=== PATIENT | female | born 1985 | race Caucasian/White ===

== ENCOUNTER 2023-01-27 15:39 | Emergency (ER) | payer OTHER, SELFPAY ==
[2023-01-27 15:42] VITALS: BP 135/81; PULSE 70; RESP 18; TEMP 36.9; O2SAT 99; BMI 35.2
--- NOTE | 2023-01-27 15:48 | DI.RAD.S_ITS ---
PROCEDURE: XR FOOT RT MIN 3V INDICATIONS: fall/pain TECHNIQUE: 3 views of the foot were acquired. COMPARISON: None. FINDINGS: Bones: No acute appearing fractures or dislocations. Apparent remote fracture of the distal interphalangeal joint of the 5th toe can be seen. No suspicious bony lesions. A plantar calcaneal spur is seen. A remote appearing fracture of the distal 5th metatarsal can be seen, with chronic, well corticated deformity. Soft tissues: No tibiotalar joint effusion. Achilles tendon appears normal. IMPRESSION: Negative for acute fracture by plain film. Remote fractures of the 5th ray seen. Dictated by: Loi King M.D. on 01/27/2023 at 15:31 Approved by: Loi King M.D. on 01/27/2023 at 15:32
--- NOTE | 2023-01-27 16:50 | ED.LOWEXIN ---
HPI - Extremity Injury (Lower) <Shelly Pathak PA-C - Last Filed: 01/27/23 19:22> General Chief Complaint: Extremity Injury, Lower Stated Complaint: top of foot injury/fell Time Seen by Provider: 01/27/23 16:06 Source: patient Mode of arrival: Ambulatory History of Present Illness HPI Narrative: 37-year-old female here in ED for right foot injury that occurred today. States she was baby wearing her 3-month-old when she slipped in the mud and to protect him she tucked and rolled and twisted her right foot in the process. Gardners immediate pain and has been unable to bear weight on it since then. Recalls in 2019 she injured the same foot in the same spot but never got seen at that time and assumed it was a sprain but it took about 1 month to heal and it was pretty painful. Related Data Home Medications Medication Instructions Recorded Confirmed tramadol 50 mg tablet 50 mg PO DAILY PRN migraine 09/16/19 07/16/20 headache valacyclovir 500 mg tablet 500 mg PO DAILY PRN 09/16/19 07/16/20 Previous Rx's Medication Instructions Recorded tramadol 50 mg tablet 50 mg PO BID #5 tabs 01/27/23 Allergies Allergy/AdvReac Type Severity Reaction Status Date / Time No Known Drug Allergies Allergy Verified 07/23/20 12:06 Review of Systems <Shelly Pathak PA-C - Last Filed: 01/27/23 19:22> Review of Systems ROS Unobtainable: All systems reviewed & are unremarkable except as noted in HPI and below Patient History <Shelly Pathak PA-C - Last Filed: 01/27/23 19:22> Social History Smoking Status: Never smoker Smoking Status: Never smoker Substance Use Type: does not use Exam <LEI Cornelius Last Filed: 01/27/23 19:22> Narrative Exam Narrative: GENERAL: [37] year old patient appears stated age. Well-developed patient, in no acute distress. HEAD: Atraumatic. Normocephalic. EYES: Pupils equal round and reactive. Extraocular motions intact. No scleral icterus. No injection or drainage. ENT: Nose without bleeding, purulent drainage. NECK: Trachea midline. Non tender RESPIRATORY: Respiratory rate and effort normal EXTREMITIES: No edema or joint tenderness. The affected foot is normal in appearance without any ecchymosis, swelling, or deformity. Tenderness over the distal 5th metatarsal present. Patient unable to bear any weight on this foot. She does have full range of motion of the foot and ankle and normal strength and sensation. Normal cap refill. NEURO: AOx3. SKIN: No rash or erythema of visible areas Initial Vital Signs Initial Vital Signs: Vital Signs Temperature 98.4 F 01/27/23 15:42 Pulse Rate 70 01/27/23 15:42 Respiratory Rate 18 01/27/23 15:42 Blood Pressure 135/81 01/27/23 15:42 Pulse Oximetry 99 01/27/23 15:42 Oxygen Delivery Method Room Air 01/27/23 15:42 <Zahra Dunn DO - Last Filed: 01/28/23 07:37> Initial Vital Signs Initial Vital Signs: Vital Signs Temperature 98.4 F 01/27/23 15:42 Pulse Rate 70 01/27/23 15:42 Respiratory Rate 18 01/27/23 15:42 Blood Pressure 135/81 01/27/23 15:42 Pulse Oximetry 99 01/27/23 15:42 Oxygen Delivery Method Room Air 01/27/23 15:42 Procedures <Shelly Pathak PA-C - Last Filed: 01/27/23 19:22> Orthopedic Splinting/Casting Injury #1: Side: right Lower Extremity Injury Location: foot Lower Extremity Immobilizer: posterior splint Other Orthopedic Equipment: crutches Post splinting neuro exam: intact Post splinting vascular exam: intact Placed by: Nursing Additional Comments: Examined by provider after placement. CMS intact and patient has no complaints. Course <Shelly Pathak PA-C - Last Filed: 01/27/23 19:22> Orders Ordered: ED Orders 01/27/23 15:48 XR foot RT min 3V Stat Vital Signs Vital signs: Vital Signs - 8 hr 01/27/23 15:42 01/27/23 16:56 Temperature 98.4 F Pulse Rate 70 68 Respiratory Rate 18 22 Blood Pressure 135/81 114/71 Pulse Oximetry 99 96 Oxygen Delivery Method Room Air Room Air <Zahra Dunn DO - Last Filed: 01/28/23 07:37> Orders Ordered: ED Orders 01/27/23 15:48 XR foot RT min 3V Stat Vital Signs Vital signs: Vital Signs - 8 hr 01/27/23 15:42 01/27/23 16:56 Temperature 98.4 F Pulse Rate 70 68 Respiratory Rate 18 22 Blood Pressure 135/81 114/71 Pulse Oximetry 99 96 Oxygen Delivery Method Room Air Room Air MDM - Extremity Injury (Lower) <Shelly Pathak PA-C - Last Filed: 01/27/23 19:22> Imaging Data Extremity x-ray #1: Radiologist's Impression: [address] [address] XRay Report Signed Patient: Izzy Arteaga MR#: [id number] : 1985 Acct:[id number] Age/Sex: 37 / F Date of Service: 01/27/23 Loc: ED Accession Number: [id number] Procedure: XR foot RT min 3V Ordering Provider: Zahra Dunn D.O. PROCEDURE: XR FOOT RT MIN 3V INDICATIONS: fall/pain TECHNIQUE: 3 views of the foot were acquired. COMPARISON: None. FINDINGS: Bones: No acute appearing fractures or dislocations. Apparent remote fracture of the distal interphalangeal joint of the 5th toe can be seen. No suspicious bony lesions. A plantar calcaneal spur is seen. A remote appearing fracture of the distal 5th metatarsal can be seen, with chronic, well corticated deformity. Soft tissues: No tibiotalar joint effusion. Achilles tendon appears normal. IMPRESSION: Negative for acute fracture by plain film. Remote fractures of the 5th ray seen. Dictated by: Loi King M.D. on 01/27/2023 at 15:31 Approved by: Loi King M.D. on 01/27/2023 at 15:32 [facility] Narrative Medical decision making narrative: Patient's examination is unremarkable except for some tenderness over the distal 5th metatarsal. Her x-ray is negative for acute fracture but she does have evidence of a old healed fracture to the distal 5th metatarsal, coincidentally right in the area of her reported pain. She does recall injuring the foot in the same fashion back in 2019 and did not seek medical care at that time. She thought it was a sprain but it did take over a month to heal and recalls it being very painful. She is in a significant amount of pain today despite there being no acute fracture. I thought her pain would best be relieved with some immobilization of the foot so we did place her in a posterior short-leg splint. There is no specific time for her to wear this but I recommended for 1 week and then she can take it off and gradually weightbear as tolerated. If she is failing to have any improvement over the next 1-2 weeks I recommend following up with her PCP to potentially repeat the x-ray in case there was any occult fracture that did not show up today. Patient did report improvement in her pain with the splint. She recently had a pretty traumatic of her son and she is having a lot of fear of pain especially at night so I gave her 5 tablets of tramadol as a backup for breakthrough pain but she is aware she will not get any refills of this. Multiple etiologies for patient's symptoms considered including, but not limited to: Fracture, sprain, strain Patient's symptoms improved over duration of stay with above-stated therapies. Findings and discharge diagnosis discussed with patient/family followed by verbalization of understanding Return precautions discussed with patient/family whom verbalize understanding of diagnosis and plan Discharge Plan Departure Patient Disposition: Home Clinical Impression: Right foot sprain Qualifiers: Encounter type: initial encounter Qualified Code(s): S93.601A - Unspecified sprain of right foot, initial encounter Instructions: DI for Foot Sprain Activity Restrictions/Additional Instructions: Thank you for coming to see us today. You had an x-ray done which showed no new fracture but there is an old fracture in the same location on your 5th metatarsal. Your presumed to have a sprain since you do not have any evidence of new fracture today on the x-ray. However since you are having lot of pain you were placed in a splint which I advise you to keep on for the next week as well as use crutches. After that you can take the splint off and weightbear as tolerated but if you continue to have severe pain and unable to place weight on the foot I recommend he follow up with her PCP to potentially have a new x-ray taken. Please use Tylenol and ibuprofen as needed for pain and you were given a prescription for 5 tablets of tramadol to use in case you have any breakthrough pain. Prescriptions: New tramadol 50 mg tablet 50 mg PO BID Qty: 5 0RF No Action valacyclovir 500 mg tablet 500 mg PO DAILY PRN tramadol 50 mg tablet 50 mg PO DAILY PRN (Reason: migraine headache) Referrals: Sheron Richard PA-C [Primary Care Provider] - Stand Alone Forms: Patient Portal/API ED Sign-out <Zahra Dunn DO - Last Filed: 01/28/23 07:37> Cosign ED Attending Evangelina Attestation: I was immediately available in the department for consultation.
[2023-01-27 16:56] VITALS: BP 114/71; PULSE 68; RESP 22; O2SAT 96
== END 2023-01-27 17:48 | disposition home or self-care (01) ==
PROVIDERS: Emergency Provider Physician Assistant; PCP Physician Assistant
DX: S93.601A Unspecified sprain of right foot, initial encounter (principal); W01.0XXA Fall on same level from slipping, tripping and stumbling without subsequent striking against object, initial encounter
CPT/HCPCS: 73630; 99283

== ENCOUNTER 2024-01-16 19:51 | Emergency (ER) | payer OTHER, SELFPAY ==
[2024-01-16 19:56] VITALS: BP 129/63; PULSE 102; RESP 16; TEMP 37.3; O2SAT 96; BMI 33.4
[2024-01-16] MEDS: ONDANSETRON 4 MG/2 ML INJ IV (20:28)
[2024-01-16 20:30] LABS: Add Manual Diff / Slide Review NO; Basophils Absolute Auto 100 /uL (0-100); Basophils Percent Auto 0.6 % (0-2); Eosinophils Absolute Auto 100 /uL (0-450); Eosinophils Percent Auto 0.8 % (2-4); Hematocrit 41.6 % (36-46); Hemoglobin 13.8 g/dL (12.0-16.0); Lymphocytes Absolute Auto 1400 /uL (1100-4500); Lymphocytes Percent Auto 12.6 % (25-40); Mean Corpuscular HGB Conc 33.3 % (30-36); Mean Corpuscular Hemoglobin 29.1 PG (26-34); Mean Corpuscular Volume 87.4 fL (80-100); Monocytes Absolute Auto 500 /uL (0-900); Monocytes Percent Auto 4.2 % (3-14); Neutrophils Absolute Auto 9300 /uL (1500-7000); Neutrophils Percent Auto 81.8 % (50-75); Platelet Count 303 X10^3/uL (150-400); Red Blood Cell Count 4.75 X10^6/uL (4.0-5.2); Red Cell Distribution Width 14.1 % (11.6-14.8); White Blood Cell Count 11.3 X10^3/uL (4.5-11.0)
[2024-01-16 20:45] LABS: Lipase 49 U/L (23-300)
[2024-01-16 20:46] LABS: Alanine Aminotransferase 21 IU/L (<35); Albumin 4.3 g/dL (3.5-5.0); Albumin Globulin Ratio 1.3 (1.0-2.8); Alkaline Phosphatase 89 U/L (38-126); Aspartate Aminotransferase 25 IU/L (14-36); Bilirubin Total 0.5 mg/dL (0.2-1.3); Blood Urea Nitrogen 11 mg/dL (7-17); Calcium 9.2 mg/dL (8.4-10.2); Carbon Dioxide 25 mmol/L (22-32); Chloride 105 mmol/L (98-107); Estimated Glomerular Filt Rate > 60 mL/min (>60); Globulin 3.2 g/dL (1.7-4.1); Glucose 114 mg/dL (70-100); HEMOLYSIS < 15 (0-50); Potassium 4.1 mmol/L (3.4-5.1); Sodium 135 mmol/L (137-145); Total Protein 7.5 g/dL (6.3-8.2)
--- NOTE | 2024-01-16 21:29 | ED.GENADULT ---
HPI - General Adult General Chief complaint: Abdominal Pain Stated complaint: Food Poisoning or Flu, Migraine Time Seen by Provider: 01/16/24 21:27 Source: patient Mode of arrival: Ambulatory History of Present Illness HPI narrative: 38-year-old female with history of recurrent headaches, had nausea and vomiting yesterday and overnight many episodes, nonbloody, 1 single loose stool, mild abdominal cramping, was concerned she might have food poisoning, through the day today with increasing headache. No shaking or seizure activity. No focal weakness or numbness to face arm or leg. No neck pain. No photophobia. No visual changes. She feels that she is nauseated unable to keep food down, feels that she is significantly dehydrated Related Data Home Medications Medication Instructions Recorded Confirmed tramadol 50 mg tablet 50 mg PO DAILY PRN migraine 09/16/19 07/16/20 headache valacyclovir 500 mg tablet 500 mg PO DAILY PRN 09/16/19 07/16/20 Previous Rx's Medication Instructions Recorded tramadol 50 mg tablet 50 mg PO BID #5 tabs 01/27/23 Allergies Allergy/AdvReac Type Severity Reaction Status Date / Time No Known Drug Allergies Allergy Verified 01/16/24 20:01 Review of Systems Review of Systems Narrative: See HPI Patient History Social History Smoking Status: Never smoker Smoking Status: Never smoker Exam Narrative Exam Narrative: GENERAL: Well-developed patient, in mild distress. HEAD: Atraumatic. Normocephalic. EYES: Pupils equal round and reactive. Extraocular motions intact. No scleral icterus. No injection or drainage. ENT: Nose without bleeding, purulent drainage. Throat without erythema, tonsillar hypertrophy or exudate. Airway patent. NECK: Trachea midline. Non tender CARDIOVASCULAR: Regular rate and rhythm without murmurs, gallops, or rubs. RESPIRATORY: Clear to auscultation. Breath sounds equal bilaterally. No wheezes, rales, or rhonchi. GASTROINTESTINAL: Abdomen soft, non-tender, nondistended. EXTREMITIES: No edema or joint tenderness. BACK: Nontender without deformity or crepitance. No flank tenderness. NEURO: AOx3. Motor functions grossly nonfocal SKIN: No rash or erythema of visible areas Initial Vital Signs Initial Vital Signs: Vital Signs Temperature 99.1 F 01/16/24 19:56 Pulse Rate 102 H 01/16/24 19:56 Respiratory Rate 16 01/16/24 19:56 Blood Pressure 129/63 01/16/24 19:56 Pulse Oximetry 96 01/16/24 19:56 Oxygen Delivery Method Room Air 01/16/24 19:56 Course Orders Ordered: ED Orders 01/16/24 20:20 Complete Blood Count AUTO DIFF Stat Comprehensive Metabolic Panel Stat Lipase Stat Discontinued Medications Diphenhydramine HCl (Diphenhydramine 50 Mg/Ml Vial) 50 mg IV NOW ONE Stop: 01/16/24 21:38 Last Admin: 01/16/24 21:42 Dose: 50 mg Documented By: ELIU Sodium Chloride (Normal Saline 0.9%) 1,000 mls @ 1,000 mls/hr IV BOLUS ONE Stop: 01/16/24 22:37 Last Infusion: 01/16/24 22:45 Dose: Infused Documented By: Admin: 01/16/24 21:46 Dose: 1,000 mls/hr Documented By: ELIU Ketorolac Tromethamine (Ketorolac 30 Mg/Ml Vial) 15 mg IV NOW ONE Stop: 01/16/24 23:30 Last Admin: 01/16/24 23:34 Dose: 15 mg Documented By: ELIU Ondansetron HCl (Ondansetron 4 Mg/2 Ml Inj) 4 mg IV NOW PRN PRN Reason: Nausea And Vomiting Last Admin: 01/16/24 20:28 Dose: 4 mg Documented By: ELIU Ondansetron HCl (Ondansetron 4 Mg Odt) 4 mg PO NOW PRN PRN Reason: Nausea And Vomiting Ondansetron HCl (Ondansetron 4 Mg Odt Prepack) 1 bottle MISC DIRECTED ONE Stop: 01/17/24 01:28 Last Admin: 01/17/24 01:32 Dose: 1 bottle Documented By: KILLIAN Prochlorperazine (Prochlorperazine 10 Mg/2 Ml Vial) 5 mg IV NOW ONE Stop: 01/16/24 21:38 Last Admin: 01/16/24 21:42 Dose: 5 mg Documented By: ELIU Vital Signs Vital signs: Vital Signs - 8 hr 01/16/24 19:56 01/17/24 01:16 Temperature 99.1 F Pulse Rate 102 H 80 Respiratory Rate 16 18 Blood Pressure 129/63 107/66 Pulse Oximetry 96 96 Oxygen Delivery Method Room Air Medical Decision Making Lab Data Lab results reviewed: Yes I reviewed the patient's lab results. Lab results narrative: White blood cell count 28167, hemoglobin 13.8, platelets adequate. Sodium 135 with glucose 114, serum potassium 4.1 normal, normal renal function noted. Liver functions and lipase normal. 01/16/24 20:20 01/16/24 20:20 Labs: Lab Results 01/16/24 Range/Units 20:20 WBC 11.3 H (4.5-11.0) X10^3/uL RBC 4.75 (4.0-5.2) X10^6/uL Hgb 13.8 (12.0-16.0) g/dL Hct 41.6 (36-46) % MCV 87.4 (80-100) fL MCH 29.1 (26-34) PG MCHC 33.3 (30-36) % RDW 14.1 (11.6-14.8) % Plt Count 303 (150-400) X10^3/uL Neut % (Auto) 81.8 H (50-75) % Lymph % (Auto) 12.6 L (25-40) % [place]hen[place] % (Auto) 4.2 (3-14) % Eos % (Auto) 0.8 L (2-4) % Baso % (Auto) 0.6 (0-2) % Neut # (Auto) 9300 H (2393-6399) /uL Lymph # (Auto) 1400 (6464-5698) /uL Mchen[place] # (Auto) 500 (0-900) /uL Eos # (Auto) 100 (0-450) /uL Baso # (Auto) 100 (0-100) /uL Sodium 135 L (137-145) mmol/L Potassium 4.1 (3.4-5.1) mmol/L Chloride 105 (98-107) mmol/L Carbon Dioxide 25 (22-32) mmol/L BUN 11 (7-17) mg/dL Creatinine 0.61 (0.52-1.04) mg/dL Estimated GFR > 60 (>60) mL/min BUN/Creatinine Ratio 18.0 (6-22) Glucose 114 H (70-100) mg/dL Calcium 9.2 (8.4-10.2) mg/dL Total Bilirubin 0.5 (0.2-1.3) mg/dL AST 25 (14-36) IU/L ALT 21 (<35) IU/L Alkaline Phosphatase 89 (38-126) U/L Total Protein 7.5 (6.3-8.2) g/dL Albumin 4.3 (3.5-5.0) g/dL Globulin 3.2 (1.7-4.1) g/dL Albumin/Globulin Ratio 1.3 (1.0-2.8) Lipase 49 (23-300) U/L Point of Care Testing Test Results Negative Urine Dip Bedside Urine Glucose Negative Bedside Urine Bilirubin - Negative Bedside Urine Ketone +/- 5 Urine Specific [place] 1.010 Bedside Urine Occult Blood - Negative Bedside Urine pH 7.0 Bedside Urine Protein - Negative Bedside Urine Urobilinogen - Negative Bedside Urine Nitrite - Negative Bedside Urine Leukocytes - Negative Esterase Point of care testing: Point of Care Testing Test Results Negative Urine Dip Bedside Urine Glucose Negative Bedside Urine Bilirubin - Negative Bedside Urine Ketone +/- 5 Urine Specific [place] 1.010 Bedside Urine Occult Blood - Negative Bedside Urine pH 7.0 Bedside Urine Protein - Negative Bedside Urine Urobilinogen - Negative Bedside Urine Nitrite - Negative Bedside Urine Leukocytes - Negative Esterase [facility] Narrative Medical decision making narrative: 38-year-old female with history of headaches, frequent nausea and vomiting since yesterday, with onset of headache earlier today, unable to keep things down. Afebrile, sirs screen negative. Moves neck well, no photophobia. IV fluids, IV Compazine/Benadryl. HCG negative. Lab tests unremarkable. Nausea significantly improved, headache also decreased but still present, we will add IV Toradol. Headache further improved, she feels much better, would like to go home. He was able to take oral fluids and ambulate. Discharged home with family. Return precautions discussed Discharge Plan Departure Patient Disposition: Home Clinical Impression: Nausea & vomiting, Headache, History of migraine headaches, Dehydration Instructions: DI for Dehydration -- Adult, DI for Nausea -- Adult, DI for Nausea -- Child, DI for Headache, Nausea and Vomiting-Adult Activity Restrictions/Additional Instructions: History of prior headaches, nausea nonbloody emesis since yesterday, headache today through the day increasing. No focal weakness. No known food exposure or persons with similar symptoms, unclear if this could represent onset from some kind of food poisoning. However significant amount of vomiting, likely dehydration, might have set off a recurrence of your prior recurrent headaches. You received IV fluids. You received IV Compazine with Benadryl, your symptoms and nausea got better. Home pack of oral antinausea medication to use if needed. Take frequent oral fluids. Recheck symptoms with your regular doctor if not improved in the next couple of days. Return to this/nearest emergency department for any change worsening symptoms or any concerns prior Prescriptions: No Action valacyclovir 500 mg tablet 500 mg PO DAILY PRN tramadol 50 mg tablet 50 mg PO DAILY PRN (Reason: migraine headache) tramadol 50 mg tablet 50 mg PO BID Qty: 5 0RF Referrals: Sheron Richard PA-C [Primary Care Provider] - Stand Alone Forms: Patient Portal/API/Survey
[2024-01-16] MEDS: diphenhydrAMINE 50 MG/ML VIAL IV (21:42)
[2024-01-16] MEDS: PROCHLORPERAZINE 10 MG/2 ML VIAL 5 MG IV (21:42)
[2024-01-16] MEDS: SODIUM CHLORIDE 0.9% 1,000 ML 1000 ML IV (21:46)
[2024-01-16] MEDS: KETOROLAC 30 MG/ML VIAL 15 MG IV (23:34)
--- NOTE | 2024-01-17 01:07 | PC.NURSE ---
Pt reports that her headache has improved with torodal, started po fluids and tolerating so far, will get pt up for ambulation trail now.
[2024-01-17 01:16] VITALS: BP 107/66; PULSE 80; RESP 18; O2SAT 96
[2024-01-17] MEDS: ONDANSETRON 4 MG ODT PREPACK 1 BOTTLE MISC (01:32)
== END 2024-01-17 01:37 | disposition home or self-care (01) ==
PROVIDERS: Emergency Provider Emergency Medicine; PCP Physician Assistant
DX: R11.2 Nausea with vomiting, unspecified (principal); R51.9 Headache, unspecified; E86.0 Dehydration
CPT/HCPCS: 36415; 80053; 81003; 81025; 83690; 85025; 96361; 96374; 96375; 99284; J0780; J1200; J1885; J2405